=== PATIENT | male | born 1980 | race Caucasian/White ===

== ENCOUNTER → 2017-03-31 | Outpatient (CLI) | payer OTHER ==
[~2017-03-31] MED LIST: CLARITIN 1010 MG/TAB PO; PERCOCET 325 MG1 TA2 PO; VITAMIN D1000 IU PO
== END ==
LOC: COL.RAD 09:44
DX: M19.071 Primary osteoarthritis, right ankle and foot (principal); M77.41 Metatarsalgia, right foot